=== PATIENT | male | born 1970 | race Caucasian/White ===

== ENCOUNTER 2017-12-12 10:07 | Emergency (ER) | payer MEDICARE, MEDICAID ==
--- NOTE | 2017-12-12 11:36 | ER Report ---
History and Physical Time Seen By MD: 10:20 Hx. of Stated Complaint: JUMPED OFF A TRAILER YESTERDAY. HIT LEFT ELBOW ON TRAILER ON THE WAY DOWN HPI/ROS CHIEF COMPLAINT: Left elbow injury HISTORY OF PRESENT ILLNESS: Patient is a 47-year-old male with no contributory past medical history who presents to the emergency department for evaluation of left elbow pain and swelling. Patient states he "jumped off a trailer yesterday and struck his left elbow against a concrete slab. He states that since going to sleep last night the pain is increased and now the elbow was swollen. Patient is left-hand dominant. He denies any other injuries. REVIEW OF SYSTEMS: Respiratory: No cough, no dyspnea. Cardiovascular: No chest pain, no palpitations. Gastrointestinal: No vomiting, no abdominal pain. Musculoskeletal: Left elbow pain Allergies: Coded Allergies: escitalopram (Verified Allergy, Intermediate, 12/12/17) HIVES Home Meds No Active Prescriptions or Reported Meds Past Medical/Surgical History COPD Constitutional Vital Sign - Last 24 Hours 12/12/17 10:11 Temp 97.4 Pulse 69 Resp 16 B/P (MAP) 115/79 Pulse Ox 95 O2 Delivery Room Air Physical Exam General appearance: Alert no distress. Respiratory: Chest is non tender, lungs are clear to auscultation. Cardiac: Regular rate and rhythm Examination of the left elbow shows no obvious deformity however there is swelling to the posterior aspect of the elbow. Area is tender. There is no obvious defect to the skin. No signs of infection. Medical Decision Making ED Course/Re-evaluation ED Course 12/12/2017 11:35:39 am plan at this time will be oral pain medication x-ray of the left elbow. Decision to Disposition Date: Dec 12, 2017 Decision to Disposition Time: 11:38 Depart Departure Latest Vital Signs Vital Signs Date Time Temp Pulse Resp B/P (MAP) Pulse Ox O2 Delivery O2 Flow Rate FiO2 12/12/17 10:11 97.4 69 16 115/79 95 Room Air Impression: Primary Impression: Elbow contusion Condition: Improved Disposition: HOME OR SELF-CARE New Scripts Oxycodone Hcl/Acetaminophen (PERCOCET 5-325 MG TABLET) 1 Each Tablet 1 EACH PO Q4-6H for PAIN, #10 TAB 0 Refills Prov: DAVID VAUGHN MD 12/12/17 Patient Instructions: Elbow Sprain (ED) Problem Qualifiers Primary Impression: Elbow contusion Encounter type: initial encounter Laterality: left Qualified Codes: S50.02XA - Contusion of left elbow, initial encounter DAVID VAUGHN MD Dec 12, 2017 11:35
[2017-12-12] MEDS ORDERED: OXYC-865 PO (11:39)
== END 2017-12-12 11:49 | disposition home or self-care (01) ==
LOC: ER 10:10
DX: S50.02XA Contusion of left elbow, initial encounter (principal); W22.8XXA Striking against or struck by other objects, initial encounter; Y93.39 Activity, other involving climbing, rappelling and jumping off
CPT/HCPCS: 73080; 99283; A9270